=== PATIENT | female | born 1955 | race Hispanic/Latino ===

== ENCOUNTER 2024-01-10 06:44 | Day surgery (SDC) | payer OTHER ==
[2024-01-10] VITALS (11 sets, daily range): BP systolic 118–168; BP diastolic 55–76; PULSE 66–77; RESP 14–17
[~2024-01-10] VITALS: Ht 157.5 cm; Wt 51.7 kg
[2024-01-10] MEDS ORDERED: BOTULINUM TOXIN TYPE A 100 UNITS/VIAL INJ ONE (07:00)
[2024-01-10] MEDS ORDERED: LISI20TA24 PO (08:03)
[2024-01-10] MEDS ORDERED: FAMO40TA7 PO (08:03)
[2024-01-10] MEDS ORDERED: RABE20TA30 PO (08:03)
[2024-01-10] MEDS ORDERED: AMLO-257 PO (08:03)
[2024-01-10] MEDS ORDERED: SIMV10TA97 PO (08:03)
[2024-01-10] MEDS ORDERED: METF-527 PO (08:03)
[2024-01-10] MEDS ORDERED: PARO10TA71 PO (08:03)
[2024-01-10] MEDS ORDERED: LEVO50CA4 PO (08:03)
[2024-01-10] MEDS: 0.9%NACL 1000ML 1,000 ML IV ONE (08:06)
[2024-01-10] MEDS ORDERED: PROPOFOL 10 MG/ML 20ML VIAL IV ONE (10:26)
[2024-01-10] MEDS ORDERED: LIDOCAINE HCL 1% 20 ML VIAL ONE (10:26)
== END 2024-01-10 12:00 | disposition home or self-care (01) ==
LOC: DAH 06:44 → ENDO 06:44
PROVIDERS: ATTEND Internal Medicine Gastroenterology
DX: K22.0 Achalasia of cardia (principal); K29.70 Gastritis, unspecified, without bleeding; I10 Essential (primary) hypertension; E78.9 Disorder of lipoprotein metabolism, unspecified; E11.9 Type 2 diabetes mellitus without complications; E03.9 Hypothyroidism, unspecified; R11.2 Nausea with vomiting, unspecified; Z86.010 Personal history of colon polyps; Z79.899 Other long term (current) drug therapy; Z79.890 Hormone replacement therapy
CPT/HCPCS: 82948 ×2; 43236; 43239; J7030 ×2; J2704; A4620; A4215; A4223; A7002; A4222; A4221; A4663; A4606; J3490